=== PATIENT | female | born 1995 | race Caucasian/White ===

== ENCOUNTER 2017-02-14 20:33 | Inpatient (IN) | payer OTHER ==
[~2017-02-14] VITALS: Ht 152.4 cm; Wt 84.3 kg
[~2017-02-14 20:33] MED LIST: CEFTIN500 MG PO; NO HOME MEDICATIONS
[2017-02-14 21:16] LABS: MEAN CELL VOLUME 88 fl (80.0-100.0); MEAN CORPUSCULAR HGB CONC 34 g/dl (33.0-37.0); MEAN PLATELET VOLUME 8.9 fl (7.4-10.4); PLATELET COUNT 210 K/mm3 (130-400); RED BLOOD COUNT 3.75 M/mm3 (4.10-5.30)
[2017-02-14 21:20] LABS: HEMOGLOBIN 11.2 g/dl (12.5-16.0); MEAN CORPUSCULAR HEMOGLOBIN 30 pg (27.0-31.0); WHITE BLOOD COUNT 23.5 K/mm3 (4.8-10.8)
[2017-02-14 21:21] LABS: ADD PATHOLOGY DIFF REVIEW NO
[2017-02-14 21:31] LABS: BAND 11 % (0-10); LYMPHOCYTE 4 % (20.0-51.0); NEUTROPHILS 79 % (42.0-75.2); PLATELET ESTIMATE NORMAL (NORMAL); TOTAL CELLS COUNTED 100
[2017-02-14 23:16] VITALS: BP 90/53; PULSE 83; TEMP 98.6
[2017-02-14 23:21] VITALS: BP 90/53; PULSE 83; TEMP 98.6
[2017-02-15] VITALS (215 sets, daily range): BP systolic 80–133; BP diastolic 36–97; PULSE 78–130; TEMP 97.7–103.1; O2SAT 86–100
[2017-02-15 06:46] LABS: MEAN CELL VOLUME 88 fl (80.0-100.0); MEAN CORPUSCULAR HGB CONC 33 g/dl (33.0-37.0); MEAN PLATELET VOLUME 9.2 fl (7.4-10.4); PLATELET COUNT 216 K/mm3 (130-400); RED BLOOD COUNT 3.61 M/mm3 (4.10-5.30)
[2017-02-15 06:58] LABS: CALCIUM 8.4 mg/dL (8.4-10.2); CREATININE, serum 0.48 mg/dL (0.52-1.25); POTASSIUM 3.5 mmol/L (3.4-5.0)
[2017-02-15 07:03] LABS: ADD PATHOLOGY DIFF REVIEW NO; HEMATOCRIT 31.8 % (37.0-47.0); HEMOGLOBIN 10.6 g/dl (12.5-16.0); MEAN CORPUSCULAR HEMOGLOBIN 29 pg (27.0-31.0); WHITE BLOOD COUNT 20.7 K/mm3 (4.8-10.8)
[2017-02-15 08:12] LABS: BAND 21 % (0-10); LYMPHOCYTE 12 % (20.0-51.0); NEUTROPHILS 64 % (42.0-75.2); PLATELET ESTIMATE NORMAL (NORMAL); TOTAL CELLS COUNTED 100
[2017-02-15 14:28] LABS: CALCIUM 7.7 mg/dL (8.4-10.2); CREATININE, serum 0.53 mg/dL (0.52-1.25); POTASSIUM 3.1 mmol/L (3.4-5.0)
[2017-02-16] VITALS (402 sets, daily range): BP systolic 91–116; BP diastolic 57–802; PULSE 85–108; TEMP 98.7–100; O2SAT 86–98
[2017-02-16 05:49] LABS: BASO % 0.2 % (0.0-2.0); EOS # 0.1 (0.0-0.7); EOS % 0.4 % (0-4.0); GRAN # 10.1 (1.4-6.5); GRAN % 70.5 % (42.2-75.2); LYMPH # 2.5 (1.2-3.4); LYMPH % 17.6 % (20.0-51.0); MEAN CELL VOLUME 87 fl (80.0-100.0); MEAN CORPUSCULAR HGB CONC 34 g/dl (33.0-37.0); MEAN PLATELET VOLUME 9.2 fl (7.4-10.4); MONO # 1.6 (0.1-0.6); MONO % 10.9 % (1.7-9.3); PLATELET COUNT 204 K/mm3 (130-400); RED BLOOD COUNT 3.01 M/mm3 (4.10-5.30); WHITE BLOOD COUNT 14.4 K/mm3 (4.8-10.8)
[2017-02-16 05:54] LABS: HEMATOCRIT 26.3 % (37.0-47.0); MEAN CORPUSCULAR HEMOGLOBIN 30 pg (27.0-31.0)
[2017-02-16 06:02] LABS: CALCIUM 7.8 mg/dL (8.4-10.2); CREATININE, serum 0.43 mg/dL (0.52-1.25); MAGNESIUM 1.9 mg/dL (1.6-2.3)
[2017-02-17 03:22] VITALS: BP 106/55; PULSE 96; TEMP 98.7
[2017-02-17 07:30] VITALS: BP 120/72; PULSE 85; TEMP 97.7
[2017-02-17 08:13] LABS: MEAN CELL VOLUME 89 fl (80.0-100.0); MEAN CORPUSCULAR HGB CONC 33 g/dl (33.0-37.0); MEAN PLATELET VOLUME 9.2 fl (7.4-10.4); PLATELET COUNT 242 K/mm3 (130-400); RED BLOOD COUNT 3.13 M/mm3 (4.10-5.30); WHITE BLOOD COUNT 8.6 K/mm3 (4.8-10.8)
[2017-02-17 08:14] LABS: ADD PATHOLOGY DIFF REVIEW NO; HEMATOCRIT 27.9 % (37.0-47.0); HEMOGLOBIN 9.3 g/dl (12.5-16.0); MEAN CORPUSCULAR HEMOGLOBIN 30 pg (27.0-31.0)
[2017-02-17 08:29] LABS: CALCIUM 8.4 mg/dL (8.4-10.2); CREATININE, serum 0.43 mg/dL (0.52-1.25); POTASSIUM 3.7 mmol/L (3.4-5.0)
[2017-02-17 09:03] LABS: BAND 34 % (0-10); BASOPHIL 2 % (0-2); EOSINOPHIL 1 % (0-4); LYMPHOCYTE 14 % (20.0-51.0); NEUTROPHILS 46 % (42.0-75.2); PLATELET ESTIMATE NORMAL (NORMAL); TOTAL CELLS COUNTED 100
[2017-02-17 09:06] LABS: TOXIC GRANULATION PRESENT
[2017-02-17 11:34] VITALS: BP 111/74; PULSE 86; TEMP 97.7
[2017-02-17 16:04] VITALS: BP 112/77; PULSE 87; TEMP 98.5
[2017-02-17 19:21] VITALS: BP 90/69; PULSE 88; TEMP 98.3
[2017-02-17 23:15] VITALS: BP 110/77; PULSE 76; TEMP 98.3
[2017-02-18 03:06] VITALS: BP 120/76; PULSE 72; TEMP 97.3
[2017-02-18 06:42] LABS: MEAN CELL VOLUME 89 fl (80.0-100.0); MEAN CORPUSCULAR HGB CONC 34 g/dl (33.0-37.0); MEAN PLATELET VOLUME 8.9 fl (7.4-10.4); PLATELET COUNT 255 K/mm3 (130-400); RED BLOOD COUNT 3.23 M/mm3 (4.10-5.30); WHITE BLOOD COUNT 6.9 K/mm3 (4.8-10.8)
[2017-02-18 06:43] LABS: HEMATOCRIT 28.6 % (37.0-47.0); HEMOGLOBIN 9.6 g/dl (12.5-16.0); MEAN CORPUSCULAR HEMOGLOBIN 30 pg (27.0-31.0)
[2017-02-18 06:44] LABS: ADD PATHOLOGY DIFF REVIEW NO
[2017-02-18 07:02] LABS: CALCIUM 8.7 mg/dL (8.4-10.2); CREATININE, serum 0.45 mg/dL (0.52-1.25); MAGNESIUM 1.9 mg/dL (1.6-2.3); POTASSIUM 3.6 mmol/L (3.4-5.0)
[2017-02-18 07:14] LABS: BAND 22 % (0-10); BASOPHIL 1 % (0-2); EOSINOPHIL 3 % (0-4); LYMPHOCYTE 23 % (20.0-51.0); NEUTROPHILS 44 % (42.0-75.2); TOTAL CELLS COUNTED 100
[2017-02-18 07:15] LABS: PLATELET ESTIMATE NORMAL (NORMAL)
[2017-02-18 08:44] VITALS: BP 125/88; PULSE 76; TEMP 98.2
[2017-02-18] MEDS ORDERED: FERROUS SU325 MG/TAB PO (10:58)
[2017-02-18] MEDS ORDERED: NORCO 325 MG-51 TAB PO (11:00)
[2017-02-18] MEDS ORDERED: CIPRO 500MG TA500 MG PO (11:16)
[2017-02-18 11:28] VITALS: BP 112/76; PULSE 77; TEMP 98.8
== END 2017-02-18 14:24 | disposition home or self-care (01) | DRG 872 ==
LOC: COL.ER 20:33 → MEDICAL 21:33 → ICU 21:33 → PEDS 02-16 15:35
PROVIDERS: Emergency Medicine; Family Medicine; Internal Medicine; Nurse Practitioner; Nurse Practitioner Family; Physician Assistant
DX: A41.9 Sepsis, unspecified organism (principal); N10 Acute pyelonephritis; R65.20 Severe sepsis without septic shock; E87.6 Hypokalemia; D64.9 Anemia, unspecified
CPT/HCPCS: 99223-AI; 99232-AI; 99233-AI; 99239; A9585; J0692; J0696; J1650; J2060; J2405; J2550; J3370; J7030; J7050; J7120

== ENCOUNTER → 2017-02-24 | Outpatient (CLI) | payer SELFPAY ==
[~2017-02-24] MED LIST changes: +CIPRO 500MG TA500 MG PO; +FERROUS SU325 MG/TAB PO; +NORCO 325 MG-51 TAB PO
[2017-02-24 16:43] LABS: MEAN CELL VOLUME 89 fl (80.0-100.0); MEAN CORPUSCULAR HEMOGLOBIN 30 pg (27.0-31.0); MEAN CORPUSCULAR HGB CONC 33 g/dl (33.0-37.0); MEAN PLATELET VOLUME 8.4 fl (7.4-10.4); PLATELET COUNT 471 K/mm3 (130-400); RED BLOOD COUNT 4.04 M/mm3 (4.10-5.30); WHITE BLOOD COUNT 9.3 K/mm3 (4.8-10.8)
[2017-02-24 16:47] LABS: HEMATOCRIT 35.9 % (37.0-47.0)
== END ==
LOC: COL.LAB 16:13
PROVIDERS: Internal Medicine
DX: N12 Tubulo-interstitial nephritis, not specified as acute or chronic (principal)

== ENCOUNTER 2018-03-12 08:51 | Outpatient (CLI) | payer OTHER ==
[~2018-03-12] VITALS: Ht 152.4 cm; Wt 100.5 kg
[2018-03-12 09:08] VITALS: BP 133/89; PULSE 92; TEMP 98.6
[2018-03-12] MEDS ORDERED: CONCEPT DHA1 CAP PO (09:13)
[2018-03-12 10:20] VITALS: BP 109/67; PULSE 80
== END 2018-03-12 10:30 | disposition home or self-care (01) ==
LOC: LDRO 08:51
DX: O26.893 Other specified pregnancy related conditions, third trimester (principal); R25.2 Cramp and spasm; Z3A.40 40 weeks gestation of pregnancy

== ENCOUNTER 2018-03-12 17:59 | Outpatient (CLI) | payer OTHER ==
[~2018-03-12] VITALS: Ht 152.4 cm; Wt 98.6 kg
[~2018-03-12 17:59] MED LIST changes: +CONCEPT DHA1 CAP PO
[2018-03-12 18:30] VITALS: BP 123/84; PULSE 118; TEMP 99.5
[2018-03-12 19:00] VITALS: BP 123/81; PULSE 100
[2018-03-12 19:30] VITALS: BP 111/66; PULSE 92
[2018-03-12 20:00] VITALS: BP 125/84; PULSE 104; TEMP 100
== END 2018-03-12 20:18 | disposition home or self-care (01) ==
LOC: LDRO 17:59
DX: O62.9 Abnormality of forces of labor, unspecified (principal); Z3A.40 40 weeks gestation of pregnancy